=== PATIENT | female | born 1985 | race American Indian/Alaskan Native ===

== ENCOUNTER 2016-12-24 11:08 | Emergency (ER) | payer OTHER ==
[2016-12-24 11:26] VITALS: BP 116/83
--- NOTE | 2016-12-24 12:06 | Emergency Department Report ---
ED Asthma HPI - General Chief Complaint: Adult Asthma Stated Complaint: ASTHMA Time Seen by Provider: 12/24/16 12:05 Source: patient Mode of arrival: Ambulatory Limitations: No Limitations - History of Present Illness Initial Comments: Patient states she's been out of her asthma medication for approximately 2 weeks. He'll further treatment and refill. Patient denies fever, inspiratory chest pain, syncope. MD Complaint: "asthma attack", shortness of breath, wheezing -: Gradual, week(s) Asthma History: history of prior ED visit Severity: moderate Context: ran out of meds, medication non-compliance - Related Data Previous Rx's Medication Instructions Recorded Last Taken Type Fluticasone [Flonase] 2 spray NS QDAY #1 bottle 11/22/15 Unknown Rx Loratadine [Claritin] 10 mg PO DAILY #30 tablet 11/22/15 Unknown Rx Prednisone [predniSONE 10 mg 10 mg PO .TAPER #1 tab.ds.pk 11/22/15 Unknown Rx (6-Day Pack, 21 Tabs)] Sulfamethoxazole/Trimethoprim 1 each PO BID #20 tablet 11/22/15 Unknown Rx [Bactrim DS TAB] Ibuprofen [Motrin] 600 mg PO Q8H PRN #40 tablet 12/27/15 Unknown Rx Penicillin Vk [Veetids TAB] 500 mg PO QID #40 tablet 12/27/15 Unknown Rx traMADol [Ultram] 50 mg PO Q6HR PRN #20 tablet 12/27/15 Unknown Rx Albuterol Sulfate [Ventolin HFA] 2 puff IH Q4H PRN #1 hfa.aer.ad 12/24/16 Unknown Rx Ipratropium/Albuterol Sulfate 3 ampul IH ONCE #60 ampul.neb 12/24/16 Unknown Rx [Duoneb 0.5 mg-3 mg/3 ml Soln] predniSONE [Deltasone] 60 mg PO ONCE #10 tablet 12/24/16 Unknown Rx Allergies Allergy/AdvReac Type Severity Reaction Status Date / Time No Known Allergies Allergy Verified 12/24/16 11:27 ED Review of Systems ROS: Stated complaint: ASTHMA Other details as noted in HPI Constitutional: no symptoms reported Eyes: denies: eye pain, eye discharge, vision change ENT: denies: ear pain, throat pain Respiratory: shortness of breath, SOB with exertion, SOB at rest, wheezing. denies: cough Gastrointestinal: denies: abdominal pain, nausea, diarrhea Genitourinary: denies: urgency, dysuria, discharge Musculoskeletal: denies: back pain, joint swelling, arthralgia Skin: denies: rash, lesions Neurological: denies: headache, weakness, paresthesias ED Past Medical Hx - Past Medical History Hx Asthma: Yes Additional medical history: PCOS - Surgical History Past Surgical History?: No - Social History Smoking Status: Never Smoker Substance Use Type: None - Medications Home Medications: Home Medications Medication Instructions Recorded Confirmed Last Taken Type Fluticasone [Flonase] 2 spray NS QDAY #1 bottle 11/22/15 Unknown Rx Loratadine [Claritin] 10 mg PO DAILY #30 tablet 11/22/15 Unknown Rx Prednisone [predniSONE 10 mg 10 mg PO .TAPER #1 tab.ds.pk 11/22/15 Unknown Rx (6-Day Pack, 21 Tabs)] Sulfamethoxazole/Trimethoprim 1 each PO BID #20 tablet 11/22/15 Unknown Rx [Bactrim DS TAB] Ibuprofen [Motrin] 600 mg PO Q8H PRN #40 tablet 12/27/15 Unknown Rx Penicillin Vk [Veetids TAB] 500 mg PO QID #40 tablet 12/27/15 Unknown Rx traMADol [Ultram] 50 mg PO Q6HR PRN #20 tablet 12/27/15 Unknown Rx Albuterol Sulfate [Ventolin HFA] 2 puff IH Q4H PRN #1 hfa.aer.ad 12/24/16 Unknown Rx Ipratropium/Albuterol Sulfate 3 ampul IH ONCE #60 ampul.neb 12/24/16 Unknown Rx [Duoneb 0.5 mg-3 mg/3 ml Soln] predniSONE [Deltasone] 60 mg PO ONCE #10 tablet 12/24/16 Unknown Rx ED Physical Exam - General Limitations: No Limitations General appearance: alert, in no apparent distress - Head Head exam: Present: atraumatic, normocephalic - Eye Eye exam: Present: normal appearance - ENT ENT exam: Present: mucous membranes moist - Neck Neck exam: Present: normal inspection - Respiratory Respiratory exam: Present: normal lung sounds bilaterally, wheezes. Absent: respiratory distress, rhonchi, stridor, chest wall tenderness, accessory muscle use - Cardiovascular Cardiovascular Exam: Present: regular rate, normal rhythm. Absent: systolic murmur, diastolic murmur, rubs, gallop - GI/Abdominal GI/Abdominal exam: Present: soft, normal bowel sounds - Extremities Exam Extremities exam: Present: normal inspection - Back Exam Back exam: Present: normal inspection - Neurological Exam Neurological exam: Present: alert, oriented X3 - Psychiatric Psychiatric exam: Present: normal affect, normal mood - Skin Skin exam: Present: warm, dry, intact, normal color. Absent: rash ED Course Vital Signs 12/24/16 12/24/16 11:15 12:39 Temperature 98.3 F Pulse Rate 89 Pulse Rate [ 69 Posterior Bilateral Throughout] Respiratory 19 Rate Respiratory 20 Rate [Posterior Bilateral Throughout] Blood Pressure 116/83 O2 Sat by Pulse 99 Oximetry - Reevaluation(s) Reevaluation #1: 12/24/16 13:12 Breathing greatly improved Critical care attestation.: If time is entered above; I have spent that time in minutes in the direct care of this critically ill patient, excluding procedure time. ED Disposition Clinical Impression: Asthma exacerbation Disposition: DISCHARGED TO HOME OR SELFCARE Is pt being admited?: No Condition: Stable Instructions: Asthma (ED) Prescriptions: Albuterol Sulfate [Ventolin HFA] 2 puff IH Q4H PRN #1 hfa.aer.ad PRN Reason: Shortness Of Breath Ipratropium/Albuterol Sulfate [Duoneb 0.5 mg-3 mg/3 ml Soln] 3 ampul IH ONCE # 60 ampul.neb predniSONE [Deltasone] 60 mg PO ONCE #10 tablet
[2016-12-24] MEDS ORDERED: DELTASONE PO ONE (12:28)
[2016-12-24] MEDS: DUONEB 0.5 MG-3 MG/3 ML SOLN IH ONE ×2 (12:42→13:39)
== END 2016-12-24 13:33 | disposition home or self-care (01) ==
LOC: ED 11:08
DX: J45.901 Unspecified asthma with (acute) exacerbation (principal)
CPT/HCPCS: 94644; 99282; J7512

== ENCOUNTER 2017-04-25 12:19 | Emergency (ER) | payer SELFPAY ==
[2017-04-25] MEDS ORDERED: DUONEB 0.5 MG-3 MG/3 ML SOLN IH ONE (12:33)
[2017-04-25] MEDS ORDERED: PROVENTIL IH ONE (15:07)
[2017-04-25] MEDS ORDERED: MAGNESIUM SULFATE 2GM/50ML 2 GM/50 ML BAG IV ONE (15:07)
--- NOTE | 2017-04-25 15:07 | Emergency Department Report ---
ED Asthma HPI - General Chief Complaint: Adult Asthma Stated Complaint: ASTHMA ATTACK Time Seen by Provider: 04/25/17 15:00 Source: patient, family Mode of arrival: Ambulatory Limitations: No Limitations - History of Present Illness Initial Comments: Pt reports asthma attack times one week. She said last week she had an attack and was given treatment and she went home and gave herself a treatment. She is having chest tightness which is 10 out of 10 with some shortness of breath. She says she ran out of her Advair and she also ran out of prednisone .Similir Feelings with previous asthma attacks. Denies any fever or chills. She reports dry cough. She says she cough/wheeze with asthma attacks. Denies any nausea or vomiting. She denies any fever or chills. MD Complaint: "asthma attack", shortness of breath, wheezing Onset/Timin -: week(s) Asthma History: childhood onset, history of frequent attac, history of prior ED visit Severity: worse than usual Context: recent URI, ran out of meds Associated Symptoms: dry cough, other (chest tightness). denies: fever, chest pain, leg edema, syncope Treatments Prior to Arrival: inhaled bronchodilator - Related Data Current Asthma Therapy: inhaled bronchodilator, inhaled steroid, recent oral steroid Previous Rx's Medication Instructions Recorded Last Taken Type Fluticasone [Flonase] 2 spray NS QDAY #1 bottle 11/22/15 Unknown Rx Loratadine [Claritin] 10 mg PO DAILY #30 tablet 11/22/15 Unknown Rx Sulfamethoxazole/Trimethoprim 1 each PO BID #20 tablet 11/22/15 Unknown Rx [Bactrim DS TAB] Ibuprofen [Motrin] 600 mg PO Q8H PRN #40 tablet 12/27/15 Unknown Rx Penicillin Vk [Veetids TAB] 500 mg PO QID #40 tablet 12/27/15 Unknown Rx traMADol [Ultram] 50 mg PO Q6HR PRN #20 tablet 12/27/15 Unknown Rx Albuterol Sulfate [Ventolin HFA] 2 puff IH Q4H PRN #1 hfa.aer.ad 12/24/16 Unknown Rx predniSONE [Deltasone] 60 mg PO ONCE #10 tablet 12/24/16 Unknown Rx Fluticasone/Salmeterol [Advair 1 puff IH BID #1 disk.w.dev 04/25/17 Unknown Rx Diskus 250-50 mcg] Ipratropium/Albuterol Sulfate 3 ampul IH QID PRN #60 ampul.neb 04/25/17 Unknown Rx [Duoneb 0.5 mg-3 mg/3 ml Soln] Prednisone [predniSONE 10 mg 10 mg PO .TAPER #1 tab.ds.pk 04/25/17 Unknown Rx (6-Day Pack, 21 Tabs)] Allergies Allergy/AdvReac Type Severity Reaction Status Date / Time No Known Allergies Allergy Verified 04/25/17 12:32 ED Review of Systems ROS: Stated complaint: ASTHMA ATTACK Other details as noted in HPI Comment: All other systems reviewed and negative Constitutional: denies: chills, fever ENT: denies: ear pain, throat pain, congestion Respiratory: cough, shortness of breath, SOB with exertion, SOB at rest, wheezing. denies: stridor Cardiovascular: chest pain (chest tightness). denies: palpitations, syncope Gastrointestinal: denies: abdominal pain, nausea, vomiting Musculoskeletal: denies: back pain, arthralgia Skin: denies: rash Neurological: denies: headache, weakness, numbness, paresthesias, confusion, abnormal gait, vertigo ED Past Medical Hx - Past Medical History Previous Medical History?: Yes Hx Asthma: Yes Additional medical history: PCOS - Surgical History Past Surgical History?: No - Family History Family history: hypertension - Social History Smoking Status: Never Smoker Substance Use Type: None - Medications Home Medications: Home Medications Medication Instructions Recorded Confirmed Last Taken Type Fluticasone [Flonase] 2 spray NS QDAY #1 bottle 11/22/15 Unknown Rx Loratadine [Claritin] 10 mg PO DAILY #30 tablet 11/22/15 Unknown Rx Sulfamethoxazole/Trimethoprim 1 each PO BID #20 tablet 11/22/15 Unknown Rx [Bactrim DS TAB] Ibuprofen [Motrin] 600 mg PO Q8H PRN #40 tablet 12/27/15 Unknown Rx Penicillin Vk [Veetids TAB] 500 mg PO QID #40 tablet 12/27/15 Unknown Rx traMADol [Ultram] 50 mg PO Q6HR PRN #20 tablet 12/27/15 Unknown Rx Albuterol Sulfate [Ventolin HFA] 2 puff IH Q4H PRN #1 hfa.aer.ad 12/24/16 Unknown Rx predniSONE [Deltasone] 60 mg PO ONCE #10 tablet 12/24/16 Unknown Rx Fluticasone/Salmeterol [Advair 1 puff IH BID #1 disk.w.dev 04/25/17 Unknown Rx Diskus 250-50 mcg] Ipratropium/Albuterol Sulfate 3 ampul IH QID PRN #60 ampul.neb 04/25/17 Unknown Rx [Duoneb 0.5 mg-3 mg/3 ml Soln] Prednisone [predniSONE 10 mg 10 mg PO .TAPER #1 tab.ds.pk 04/25/17 Unknown Rx (6-Day Pack, 21 Tabs)] ED Physical Exam - General Limitations: No Limitations General appearance: alert, in no apparent distress - Head Head exam: Present: atraumatic, normocephalic, normal inspection - Eye Eye exam: Present: normal appearance, PERRL, EOMI. Absent: periorbital swelling , periorbital tenderness Pupils: Present: normal accommodation - ENT ENT exam: Present: normal exam, normal orophraynx, mucous membranes moist, TM's normal bilaterally, normal external ear exam - Neck Neck exam: Present: normal inspection, full ROM. Absent: tenderness, meningismus, thyromegaly - Respiratory Respiratory exam: Present: normal lung sounds bilaterally, wheezes, other (dry cough). Absent: respiratory distress, rales, rhonchi, stridor, chest wall tenderness, accessory muscle use, decreased breath sounds, prolonged expiratory - Cardiovascular Cardiovascular Exam: Present: regular rate, normal rhythm, normal heart sounds - GI/Abdominal GI/Abdominal exam: Present: soft, normal bowel sounds. Absent: distended, tenderness, guarding, rebound, rigid - Extremities Exam Extremities exam: Present: normal inspection, full ROM, normal capillary refill. Absent: tenderness, pedal edema, joint swelling, calf tenderness - Back Exam Back exam: Present: normal inspection, full ROM. Absent: tenderness, CVA tenderness (R), CVA tenderness (L), muscle spasm, paraspinal tenderness, vertebral tenderness, rash noted - Neurological Exam Neurological exam: Present: alert, oriented X3, normal gait, reflexes normal. Absent: motor sensory deficit - Psychiatric Psychiatric exam: Present: normal affect, normal mood - Skin Skin exam: Present: warm, dry, intact, normal color. Absent: rash ED Course Vital Signs 04/25/17 04/25/17 04/25/17 12:29 15:38 16:59 Temperature 98.4 F 97.8 F Pulse Rate 93 H 96 H Pulse Rate [ 79 Anterior Bilateral Throughout] Respiratory 16 18 Rate Respiratory 18 Rate [Anterior Bilateral Throughout] Blood Pressure 131/76 Blood Pressure 108/75 [Left] O2 Sat by Pulse 94 95 Oximetry - Reevaluation(s) Reevaluation #1: 04/25/17 16:22 Albuterol 10 mg nebulizer treatment, Solu-Medrol 125 mg IV nebulizer treatment and magnesium sulfate 2 g IV.will reevaluated after medication. Reevaluation #2: 04/25/17 17:14 Patient completed her breathing treatment and she says she feels a lot better. He denies any chest tightness and patient is not coughing at present. Reevaluation of her lungs, no audible wheezing heard. ED Medical Decision Making - Medical Decision Making ED course: Patient with asthma attack and was treated with DuoNeb 1 nebulizer in triage area. Upon arrival to fast track, patient lung sounds within generalized the lung longoria, continuous cough with complaint of chest tightness. Patient was given albuterol 10 mg nebulizer treatment, Solu-Medrol 125 mg IV and magnesium sulfate 2 g IV. Reevaluation, she said that she felt better on her lung sounds are clear. Patient denies any chest tightness and her coughing has diminished. Patient discharged home refill for ADVAIR, PREDNISONE and albuterol nebulizer. Discussed. She needs to follow up with primary care physician to call tomorrow to schedule an appointment. Critical care attestation.: If time is entered above; I have spent that time in minutes in the direct care of this critically ill patient, excluding procedure time. ED Disposition Clinical Impression: Cough in adult Asthma with acute exacerbation Qualifiers: Asthma severity: moderate persistent Qualified Code(s): J45.41 - Moderate persistent asthma with (acute) exacerbation Disposition: -01 TO HOME OR SELFCARE Is pt being admited?: No Does the pt Need Aspirin: No Condition: Stable Instructions: Asthma (ED), Acute Cough (ED) Additional Instructions: Call your Primary care physician to schedule appointment status post asthma attack. Take asthma medication as prescribed. Prescriptions: Fluticasone/Salmeterol [Advair Diskus 250-50 mcg] 1 puff IH BID #1 disk.w.dev Ipratropium/Albuterol Sulfate [Duoneb 0.5 mg-3 mg/3 ml Soln] 3 ampul IH QID PRN #60 ampul.neb PRN Reason: COUGH AND WHEEZING Prednisone [predniSONE 10 mg (6-Day Pack, 21 Tabs)] 10 mg PO .TAPER #1 tab.ds.pk Referrals: PRIMARY CARE, [Primary Care Provider] - 04/26/17 Forms: Accompanied Note, Work/School Release Form(ED)
[2017-04-25 17:00] VITALS: BP 108/75
== END 2017-04-25 17:27 | disposition home or self-care (01) ==
LOC: ED 12:19
DX: J45.41 Moderate persistent asthma with (acute) exacerbation (principal)
CPT/HCPCS: 94640; 96365; 96375; 99283; J2930; J3475

== ENCOUNTER 2017-10-21 14:21 | Emergency (ER) | payer OTHER ==
[2017-10-21 16:18] VITALS: BP 131/88
[2017-10-21 17:31] LABS: Bacteria,Urine 2+ /HPF (Negative); Bilirubin,Urine NEG (Negative); Blood,Urine NEG (Negative); Ketones,Urine NEG (Negative); Leukocyte Esterase,Urine NEG (Negative); Nitrite,Urine NEG (Negative); Protein,Urine <15 mg/dL mg/dL (Negative); RBC,Urine < 1.0 /HPF (0.0-6.0); Urobilinogen,Urine < 2.0 mg/dL (<2.0)
[2017-10-21] MEDS ORDERED: NORCO 5/325 PO ONE (20:00)
--- NOTE | 2017-10-21 20:02 | Emergency Department Report ---
Upper Extremity - HPI Chief Complaint: Extremity Injury, Upper Stated Complaint: LEFT THUMB PAIN Time Seen by Provider: 10/21/17 19:55 Upper Extremity: Left Thumb Occurred When: >5 Days Mechanism: Crush Severity: mild Symptoms: Yes Deformity, Yes Swelling, Yes Bruising/Ecchymosis, No Pain with Movement, No Limited Range of Movement, No Numbness, No Weakness, No Laceration or Abrasion Other History: 32-year-old female past medical history depression. Presents with complaint of left distal thumb swelling and ecchymosis. Patient states that approximately 5 days ago she slammed her finger in car door. Patient has visible subungual hematoma left thumbnail. ED Review of Systems ROS: Stated complaint: LEFT THUMB PAIN Other details as noted in HPI Constitutional: denies: chills, fever Eyes: denies: eye pain, eye discharge, vision change ENT: denies: ear pain, throat pain Respiratory: denies: cough, shortness of breath, wheezing Cardiovascular: denies: chest pain, palpitations Endocrine: no symptoms reported Gastrointestinal: denies: abdominal pain, nausea, diarrhea Genitourinary: denies: urgency, dysuria, discharge Musculoskeletal: as per HPI. denies: back pain, joint swelling, arthralgia Skin: denies: rash, lesions Neurological: denies: headache, weakness, paresthesias Psychiatric: denies: anxiety, depression Hematological/Lymphatic: denies: easy bleeding, easy bruising ED Past Medical Hx - Past Medical History Hx Asthma: Yes Additional medical history: PCOS - Social History Smoking Status: Current Every Day Smoker Substance Use Type: None - Medications Home Medications: Home Medications Medication Instructions Recorded Confirmed Last Taken Type Fluticasone [Flonase] 2 spray NS QDAY #1 bottle 11/22/15 Unknown Rx Loratadine [Claritin] 10 mg PO DAILY #30 tablet 11/22/15 Unknown Rx Sulfamethoxazole/Trimethoprim 1 each PO BID #20 tablet 11/22/15 Unknown Rx [Bactrim DS TAB] Ibuprofen [Motrin] 600 mg PO Q8H PRN #40 tablet 12/27/15 Unknown Rx Penicillin Vk [Veetids TAB] 500 mg PO QID #40 tablet 12/27/15 Unknown Rx traMADol [Ultram] 50 mg PO Q6HR PRN #20 tablet 12/27/15 Unknown Rx Albuterol Sulfate [Ventolin HFA] 2 puff IH Q4H PRN #1 hfa.aer.ad 12/24/16 Unknown Rx predniSONE [Deltasone] 60 mg PO ONCE #10 tablet 12/24/16 Unknown Rx Fluticasone/Salmeterol [Advair 1 puff IH BID #1 disk.w.dev 04/25/17 Unknown Rx Diskus 250-50 mcg] Ipratropium/Albuterol Sulfate 3 ampul IH QID PRN #60 ampul.neb 04/25/17 Unknown Rx [DUONEB *Not for PRN Use*] Prednisone [predniSONE 10 mg 10 mg PO .TAPER #1 tab.ds.pk 04/25/17 Unknown Rx (6-Day Pack, 21 Tabs)] Acetaminophen/Codeine [Tylenol 1 tab PO Q6H PRN #4 tab 10/21/17 Unknown Rx /Codeine # 3 tab] Bacitracin Zinc Oint [Antibiotic 1 applicatio TP TID #1 tube 10/21/17 Unknown Rx Oint] Cephalexin [Keflex] 500 mg PO Q12HR #14 cap 10/21/17 Unknown Rx Naproxen 500 mg PO BID PRN #30 tablet 10/21/17 Unknown Rx Upper Extremity Exam - Exam General: Vital signs noted. No distress. Alert and acting appropriately. Head and Torso: No HEENT Abnormality, No Neck Tenderness, No Chest/Lungs Abnormality, No Abdominal Tenderness, No Back Tenderness Shoulder Exam: Yes Normal Range of Motion in Shoulder, No Shoulder Tenderness, No Clavicle Tenderness, No Shoulder Deformity, No AC Joint Tenderness Arm Exam: No Arm/Humerus Tenderness, No Arm Deformity Elbow: No Elbow Tenderness, No Normal Range of Motion in Elbow, No Elbow Deformity Forearm: No Forearm Tenderness, No Forearm Deformity, No Pain with Pronation, No Pain with Supination Wrist: Yes Normal ROM in Wrist (wrist flexion and extension intact), No Wrist Tenderness, No Wrist Deformity, No Snuffbox Tenderness (there is no snuffbox tenderness on exam), No Pain with Axial Thumb Compression Hand: Yes Normal ROM in Digit(s), No Hand Tenderness, No Hand Deformity, No Digit Tenderness, No Digit(s) Deformity, No Tendon Dysfunction CMS Exam: Yes Normal Distal Pulses (distal capillary refill all fingers clinically intact. Distal sensation intact. Distal radial and brachial pulses intact), Yes Normal Capillary Refill, Yes Normal Distal Sensation, No Broken Skin Hand L/R Back: 1 - Visible subungual hematoma underneath the fingernail ED Course Vital Signs 10/21/17 16:15 Temperature 97.6 F Pulse Rate 77 Respiratory 18 Rate Blood Pressure 131/88 O2 Sat by Pulse 100 Oximetry - I & D Left Distal Finger Type of Procedure: Simple Site: left distal thumb subungal hematoma Blade Size: electrocautery device Progress: distal thumbnail cleansed with iodione. single trenphination hole made to relieve subungal hematoma. procedure tolerated well, good evacuation of subungal hematoma. Covered with bandaid and triple abx ointment afterward ED Medical Decision Making - Medical Decision Making a/p: subungal hematoma left distal thumb 1- successful incision and drainage of subungal hematoma, significant relief of pain. tdap up to date 2- motrin prn, short course keflex, topical bacitracin. I informed the pt the nailbed may shed off, will give f/u with derm 3- I advised pt to return for any pus drainage, erythema, fever, or chills 4- Pt is declining fingertip xray at this time. I discussed this with the pt. as pt has full ROM left hand and full ROM all fingers left hand with no snuffbox tenderess no necessary to obtain xray. I informed pt there is small possibility of distal left thumb tuft injury and gave her f/u with orthopedics Critical care attestation.: If time is entered above; I have spent that time in minutes in the direct care of this critically ill patient, excluding procedure time. ED Disposition Clinical Impression: Subungual hematoma of finger of left hand Qualifiers: Encounter type: initial encounter Qualified Code(s): S60.10XA - Contusion of unspecified finger with damage to nail, initial encounter Disposition: TO HOME OR SELFCARE Is pt being admited?: No Does the pt Need Aspirin: No Condition: Stable Instructions: Jammed Finger (ED), Subungual Hematoma (ED), Acute Wound Care (ED ), Incision and Drainage (ED) Prescriptions: Acetaminophen/Codeine [Tylenol /Codeine # 3 tab] 1 tab PO Q6H PRN #4 tab PRN Reason: Pain Bacitracin Zinc Oint [Antibiotic Oint] 1 applicatio TP TID #1 tube Cephalexin [Keflex] 500 mg PO Q12HR #14 cap Naproxen 500 mg PO BID PRN #30 tablet PRN Reason: Pain Referrals: [facility] [Outside] - 3-5 Days [facility] [Outside] - 3-5 Days [facility] [Provider Group] - 3-5 Days [facility] [Provider Group] - 3-5 Days Forms: Accompanied Note, Work/School Release Form(ED) Time of Disposition: 20:29
[2017-10-21] MEDS ORDERED: TRIPLE ANTIBIOTIC TP ONE (20:03)
== END 2017-10-21 20:45 | disposition home or self-care (01) ==
LOC: ED 14:21
DX: S60.012A Contusion of left thumb without damage to nail, initial encounter (principal); F17.200 Nicotine dependence, unspecified, uncomplicated; W23.0XXA Caught, crushed, jammed, or pinched between moving objects, initial encounter; Y93.89 Activity, other specified; Y92.89 Other specified places as the place of occurrence of the external cause; Y99.8 Other external cause status
CPT/HCPCS: 81001; 81025; 99283; A6250